=== PATIENT | male | born 1990 | race Caucasian/White ===

== ENCOUNTER 2017-09-15 22:24 | Emergency (ER) | payer OTHER ==
[~2017-09-15] VITALS: Ht 180.3 cm; Wt 85.3 kg
[2017-09-15 23:03] LABS: HEMATOCRIT 43.2 % (42.0-52.0); HEMOGLOBIN 14.6 gm/dL (14.0-18.0); MCH 29.2 pg (26.0-34.0); MCHC 33.9 g/dL (28.0-37.0); MCV 86.1 fL (80.0-100.0); MPV 7.6 fl. (7.2-11.1); RBC 5.01 mil/uL (4.50-6.00)
[2017-09-15 23:11] LABS: CALCIUM 8.9 mg/dL (8.5-10.1); CREATININE 1.3 mg/dL (0.6-1.3); POTASSIUM 4.3 mmol/L (3.5-5.1)
[2017-09-15 23:16] LABS: ALBUMIN 3.8 g/dL (3.4-5.0); TOTAL BILIRUBIN 0.5 mg/dL (<0.1-1.0); TOTAL PROTEIN 6.8 g/dL (6.4-8.2)
[2017-09-15 23:37] VITALS: BP 144/93
--- NOTE | 2017-09-16 16:36 | EKG ---
[place] [address] ELECTROCARDIOGRAM REPORT Name: ERAN BLOOM [place] Room: [facility]#: [id number] Admission: 09/15/17 Attend Phys: Discharge: 09/15/17 Date of : [birth year] Report #: [id number] THIS REPORT FOR: //name// [facility] ED Test Date: 2017-09-15 Test Time: 22:33:00 Pat Name: ERAN BLOOM Department: Room: Gender: M [employer]: : 1990 Requested By: Winston Moon Order Number: [id number] MD: Hai Lovell Measurements Intervals [place] Rate: 89 P: 43 NV: 143 QRS: 60 QRSD: 96 T: 29 QT: 335 QTc: 408 Interpretive Statements Sinus rhythm No previous ECG available for comparison Electronically Signed On 09-16-2017 16:35:50 CDT by Hai Lovell [email or web address] <ELECTRONICALLY SIGNED> By: Hai Lovell MD, [facility] 09/16/17 1635 [id number] Hai Lovell MD, FACC /EPI
== END 2017-09-15 23:37 | disposition home or self-care (01) ==
LOC: EDSEX 22:24 → M.ERS 22:24
PROVIDERS: Emergency Medicine
DX: R55 Syncope and collapse (principal)